=== PATIENT | male | born 1960 | race Caucasian/White ===

== ENCOUNTER 2024-02-06 14:55 | Emergency (ER) | payer OTHER, SELFPAY ==
[2024-02-06 14:58] VITALS: BP 158/94; BMI 30.1
--- NOTE | 2024-02-06 15:48 | ED.GENMED ---
History of Present Illness
General
Chief Complaint: Swelling
Source: patient and spouse
Exam Limitations: none
Time Seen by Provider: 02/06/24 15:37
Nursing documentation reviewed up to this point in time: agreed with
Travel History
Have you had any contact with someone who has COVID-19?: No
Do you have any symptoms of coronavirus? Fever > 100 degrees, chills, cough, shortness of breath, sore throat, loss of taste or smell, muscle aches, or headache?: No
History of Present Illness
History of Present Illness:
63-year-old male presents with swelling of the right calf from urgent care 2 weeks ago he bent down and injured his right knee on a stone had some mild redness diagnosed with patellar bursitis at the urgent care sent here because he had calf
swelling as well no chest pain or shortness of breath no fever,
Past History
Past History
ED Past Medical History: HTN and Hypercholesterolemia
Social History
Tobacco: Non-smoker
Alcohol: None
Drug: None
Personal:
Living: with family
Employment: Employed
Review of Systems
Review of Systems
All Other Systems: Not applicable
Constitutional: Denies fever or fatigue
Respiratory: Denies trouble breathing
Cardiac: Denies chest pain
Musculoskeletal: Reports edema and other (Swelling at the bursa of the patella on the right)
Endocrine: Reports no symptoms
Phy Exam
Physical Exam
Physical Exam:
Physical Exam
General: no apparent distress, not acutely ill
Neck: No jaundice
Heart: s1/s2 regular rate and rhythm, no murmur. equal radial pulses.
Lungs: no acute respiratory distress. clear bilaterally
Neuro: alert and oriented. no focal neurological deficits
Skin: no rash
Psychiatric: well kept. interactive and cooperative
Extremities: Right knee mild swelling at the mild warmth no cellulitic changes no fluctuance positive swelling of the right calf compartments are soft
Scores
Heart Failure Risk
Heart Failure Risk Score: Not Applicable
Course
Orders/Labs/Results
Orders:
Orders
02/06/24 15:43
Andreas Wrap Left-Treatment ONCE
Ibuprofen [Motrin] 600 mg PO NOW STA
02/06/24 15:50
US Periph Venous LOWER Ext RT Urgent
Comment:
Reason For Exam: swelling
Vital Signs
Initial and Last Documented VS:
Initial Vital Signs
Temp Pulse Resp BP Pulse Ox
98.1 F 80 16 158/94 98
02/06/24 14:58 02/06/24 14:58 02/06/24 14:58 02/06/24 14:58 02/06/24 14:58
Last Documented Vital Signs
Temp Pulse Resp BP Pulse Ox
98.1 F 80 16 158/94 98
02/06/24 14:58 02/06/24 14:58 02/06/24 14:58 02/06/24 14:58 02/06/24 14:58
Procedures
Splint Check
Splint checked by provider?: No
Circulation/Movement/Sensation post splint application: brisk cap refill
Splinting/Sling Placement
Right Knee:
Procedure completed by: rn
Pre-splint extermity exam: neurovascular intact
Type of splint: andreas wrap
Splint checked by provider?: No
MDM/Problems Addressed
Differential Diagnosis Includes:
Bursitis Mac's cyst strain strain no signs compartment syndrome no signs of active infection
*Critical Care Note
Total Time (30-74mins, 75-104mins- exclusive of procedures): Not Applicable
ED Attending Note
-
Portions of this chart may have been created with voice recognition software.� Occasional wrong word or��sound alike� substitutions may have occurred due to the inherent limitations of voice recognition software.
Discharge Plan
Departure
Patient Disposition: Home (Routine Discharge)
Date of Disposition: 02/06/24
Time of Disposition: 17:32
Patient with high blood pressure during this ER visit?: No
Condition: Good
Covid-19: Not Applicable
Discharge Problem:
Bursitis
Instructions: Bursitis ED
Prescriptions:
New
ibuprofen 600 mg tablet
600 mg PO Q6H PRN (Reason: Pain) Qty: 20 0RF
No Action
multivitamin [Daily Multiple] 1 EACH tablet
1 ea PO
atorvastatin 10 MG tablet
10 mg PO DAILY
amlodipine 10 MG tablet
10 mg PO DAILY
docosahexaenoic acid-epa 1 CAP capsule
1 cap PO DAILY
gentamicin [Garamycin] 0.3 % drops
1 drp LEFT EYE Q4HWA Qty: 1 0RF
Rx Instructions:
Use the eye drops for 5 days
Referrals:
Lucio Weber MD [Family Provider] - Follow up in 2-3 days
Activity Restrictions/Additional Instructions:
Start ibuprofen 600 mg every 6 hours
Use Andreas wrap for comfort
Follow-up with your family doctor return to the ER if worsening symptoms
Interventions
Interventions:
*Risk Screen - Suicide Last Done: 02/06/24 14:58
*Neglect/Abuse Screening Last Done: 02/06/24 14:58
ED- Fall Risk Assessment Last Done: 02/06/24 16:21
*ED COVID-19 Vaccine History Last Done: 02/06/24 14:58
ED- Cardiac Assessment Last Done: 02/06/24 16:21
ED- Pulmonary Assessment Last Done: 02/06/24 16:21
ED-Skin Assessment Last Done: 02/06/24 16:21
Discharge Date and Time
Print Language: EGYPTIAN
[2024-02-06] MEDS: MOTRIN 600 MG PO (16:02)
[2024-02-06 18:26] VITALS: BP 141/74
== END 2024-02-06 18:31 | disposition home or self-care (01) ==
LOC: EMR 14:55
PROVIDERS: EMERGENCY PHYSICIAN Emergency Medicine; FAMILY PHYSICIAN Family Medicine
DX: M70.51 Other bursitis of knee, right knee (principal); X50.1XXA Overexertion from prolonged static or awkward postures, initial encounter
CPT/HCPCS: 99284; 93971